=== PATIENT | male | born 1935 | race Caucasian/White ===

== ENCOUNTER 2016-09-05 15:39 | Inpatient (IN) | payer MEDICARE, BC ==
--- NOTE | ~2016-09-05 | PUL ---
[address] [address] NAME: CHRISTIAN HOFFMAN : 37 STATUS : DIS IN PAT#: [id number] AGE: 80 ADM/REG DATE : 09/06/16 MR#: [id number] REPORT SERV DATE: 09/25/16 DICTATED BY: LUCA OLIVIA DATE: 09/24/16 REPORT STATUS : Draft TRANSCRIBED BY: MODL DATE: 09/24/16 PULMONARY FUNCTION TEST PROCEDURE PERFORMED: Overnight oximetry on supplemental oxygen. RECORDED TIME: Five hours and 50 minutes. The patient had no significant desaturations on supplemental oxygen. IMPRESSION: No significant oxygen desaturation on 2 L/minute, a liter flow of supplemental oxygen. DIANE/YUKI Luca Olivia M.D. / [id number] CC: John Mariscal Jr., M.D.
--- NOTE | ~2016-09-05 | PUL ---
[address] [address] NAME: CHRISTIAN HOFFMAN : 37 STATUS : ADM IN PAT#: [id number] AGE: 80 ADM/REG DATE : 09/06/16 MR#: [id number] REPORT SERV DATE: 09/17/16 DICTATED BY: NYASIA LOBATO DATE: 09/16/16 REPORT STATUS : Draft TRANSCRIBED BY: MODL DATE: 09/16/16 PULMONARY FUNCTION TEST Overnight oximetry was performed on 4 L nasal cannula. Total valid sampling time was 6 hours 17 minutes and 5 seconds. Saturations were less than 88% for 0 seconds. INTERPRETATION: Normal oximetry report while on 4 L nasal cannula. DANIELE/MODL Nyasia Lobato M.D. / [id number] CC: John Mariscal Jr., M.D.
--- NOTE | ~2016-09-05 | DS ---
Discharge Summary [place] [id number] [place]. [address] NAME: CHRISTIAN HOFFMAN : 37 STATUS : DIS IN PAT#: [id number] AGE: 80 ADM/REG DATE : 09/06/16 MR#: [id number] REPORT SERV DATE: 10/03/16 DICTATED BY: URSULA MARISCAL JR. DATE: 10/02/16 REPORT STATUS : Draft TRANSCRIBED BY: YUKI DATE: 10/02/16 Data Collection from hospitalization DISCHARGE DIAGNOSES: ( ) ( ) ( ) CONSULTATIONS: Dr. Erasmo Olivares, Dr. Campbell Hudson, Dr. Hank Benítez. PROCEDURES PERFORMED: Diagnostic therapeutic bronchoscopy; endobronchial ultrasound with multiple fine-needle aspiration; carley stations 4R, 4L, 7; endobronchial biopsy, left main stem bronchus, 09/05/2016. 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 Metaplastic endobronchial mucosa with mild atypia. Lymph node level 7 EBUS-guided aspirate (smears and cell block). Adequate lymphoid sampling. Few atypical cells (see comments). Lymph node 4R EBUS-guided aspirate (smears and cell block)-inadequate lymphoid sampling. Abundant blood. No malignant cells identified. Lymph node 4L EBUS-guided aspirate (smears and cell block)-adequate lymphoid sampling. Necrosis associated with atypical cells (see comment). MEDICATIONS: Eliquis 2.5 mg twice a day, vitamin C 100 mg daily, Cardizem 240 mg daily as instructed, Lopressor 25 mg twice a day, MiraLAX powder one packet twice a day, Lyrica 200 mg three times a day, Requip 1 mg at bedtime, OxyContin 20 mg every 12 hours, Deltasone 40 mg with breakfast, Brovana 15 mcg via inhaler twice a day as instructed, Pulmicort Respules 0.5 mg via inhaler twice a day, DuoNeb 3 mL via inhaler every four hours, Skelaxin 800 mg four times a day as needed, Endocet 5/325 one tablet twice a day, Sonata 10 mg at bedtime, glucosamine as instructed, Valium 10 mg every eight hours as needed for anxiety. CONDITION AT DISCHARGE: Stable. DISPOSITION: The patient was discharged to [facility] on a regular diet with activities as instructed. HOSPITAL COURSE: This is a 80-year-old man, who had recently developed hoarseness and cough as well as shortness of breath. He does had a history of tobacco abuse. Chest x-ray and CT scan showed a large anterior mediastinal mass concerning for a malignant process. He also recently had atrial fibrillation and had been started on digoxin and Eliquis. Treatment options were discussed and it was elected to proceed with surgical intervention. He was admitted to the hospital at this time for further evaluation and treatment. Upon admission, he was taken to the operating room, where he underwent the above-mentioned procedure. He tolerated this well and there were no complications. On postop day one, chest x-ray showed basilar atelectasis. Diuresis was being performed. Cardizem drip continued. He had some postoperative hypoxemia. On the , O2 was being weaned as tolerated. He was seen by Dr. Erasmo Olivares regarding acute bronchospasm and hypoxia. The patient was currently hypoxic and bronchospastic respiratory failure. He was unable to give a complete history. He had had an increased cough, wheezing, sputum production, and Discharge Summary [address] [address] NAME: CHRISTIAN HOFFMAN : 37 STATUS : DIS IN PAT#: [id number] AGE: 80 ADM/REG DATE : 09/06/16 MR#: [id number] REPORT SERV DATE: 10/03/16 DICTATED BY: URSULA MARISCAL JR. DATE: 10/02/16 REPORT STATUS : Draft TRANSCRIBED BY: YUKI DATE: 10/02/16 shortness of breath with hypoxia over the last 24-48 hours. Arterial blood gas checked during this clinical encounter showed what seemed to be chronic hypercapnia. The patient has a long history of smoking. He was currently only receiving albuterol and Spiriva. He had no chest pain. The patient said he recently quit smoking. Chest x-ray was consistent with hyperinflated lungs and what looked to be bibasilar atelectasis. CT scan showed significant mediastinal adenopathy. The acute hypoxic respiratory failure was felt most likely secondary to what seemed to be an exacerbation of chronic obstructive pulmonary disease and bibasilar atelectasis. He recommended increasing nebulizer to Brovana, Pulmicort, and DuoNeb. IV steroids were going to began. He also recommended starting BiPAP therapy. Mucomyst was continued. We were going to start antimicrobial therapy. The patient was going to be transferred to the [facility]. If he had worsening respiratory status, we may need to move him to the intensive care unit. However, it was of hope that with the above-named therapy, the patient would have an improvement. The patient was also seen by Dr. Campbell Hudson. White blood cell count was 13,200. Final pathology results were pending. Findings were concerning for small cell versus lymphoma. He had had a clinical deterioration with worsening of his breathing. He felt that we may want to initiate therapy while he was in the hospital. On 09/08/2016, he had decreased breath sounds bilaterally. He was very short of breath. He had had a 35 pounds weight loss. Pathology verbal report was consistent with DLBCL. It was felt that the patient would need to start therapy as soon as possible. R-CV and Solu-Medrol therapy were going to begin that day. A PICC line was inserted. The next day, the patient had difficulty communicating. Chemotherapy was going to began. Oral Cardizem was continued for atrial fibrillation. Drip was being weaned. 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 He was on BiPAP. On 09/09/2016, he complained of dysphagia. He was in no acute distress. He did have some anxiety. He was on Vapotherm. The patient was seen by Dr. Hank Benítez. The patient felt short of breath and was on Vapotherm. He remained afebrile. He had no issues with chemotherapy overnight. He had no nausea or vomiting. On 09/10/2016, he seemed to be doing better. He was off BiPAP. He was in no distress. He was still anxious. He was placed back on BiPAP after two hours. He was using accessory muscles. He had no edema. He complained of some diffuse pain. He seemed more comfortable on BiPAP. We encouraged him to get out of bed. Supportive care continued. On 09/11/2016, he had some increased work of breathing. Chemotherapy and steroids were continued. Nebulizer therapy continued as well. He was in a normal sinus rhythm. His anxiety had improved. He did have some rhonchi and wheezing. On 09/13/2016, he was still significantly short of breath, requiring BiPAP. He had decreased breath sounds bilaterally. His chemotherapy had been started urgently due to respiratory compromise. His breathing had not improved significantly. Urine output was adequate. The next day, he was on nasal cannula. He was less short of breath. He had a dry cough. He had no fevers or chills. He was having slow clinical improvement. Liver enzymes were elevated. He was evaluated by Physical Therapy. On 09/15/2016, he felt like his breathing was little better. He still had some dyspnea. We encouraged him to increase his activity. He had scattered rhonchi in his lungs. The next day, he said he was breathing well, but did not sleep at all the previous evening. Later in the day, he complained that he felt like he could not breathe. We were going to place him back on Discharge Summary [address] [address] NAME: CHRISTIAN HOFFMAN : 37 STATUS : DIS IN PAT#: [id number] AGE: 80 ADM/REG DATE : 09/06/16 MR#: [id number] REPORT SERV DATE: 10/03/16 DICTATED BY: URSULA MARISCAL JR. DATE: 10/02/16 REPORT STATUS : Draft TRANSCRIBED BY: YUKI DATE: 10/02/16 BiPAP, so we would feel more comfortable. On the , his breathing was slowly improving. He said he had a good night of sleep. He had no new issues. His next chemotherapy cycle would be in two weeks. Discharge planning was performed. No new issues from a surgical standpoint. On 09/21/2016, discharge instructions were given. Due to his improved and stable condition, he was discharged to [facility] with the above-stated instructions. Information collected by: Dawna Guerrier I submit the above information as my discharge summary. FILIBERTO/YUKI Ursula Mariscal Jr., M.D. / [id number] CC: Rachna Barillas Jr. D.O. [facility] Becca RIVERA M.D.
--- NOTE | ~2016-09-05 | CN ---
Consultation Report [facility] [address] [place]. [address] NAME: CHRISTIAN PETERSON : 37 STATUS : ADM IN [facility]#: [id number] AGE: 80 ADM/REG DATE : 09/06/16 MR#: [id number] REPORT SERV DATE: 09/07/16 DICTATED BY: ERASMO OLIVARES DATE: 09/07/16 REPORT STATUS : Draft TRANSCRIBED BY: MODL DATE: 09/07/16 PULMONARY CONSULT NOTE DATE OF CONSULTATION: 09/07/2016 REASON FOR CONSULTATION: Acute bronchospasm and hypoxia. HISTORY OF PRESENT ILLNESS: Mr. Peterson is a 80-year-old male who presented several days ago for an EBUS procedure and was admitted, he has either small cell or underlying lymphoma, pathology is still pending. The patient is currently in a hypoxic and bronchospastic respiratory failure, is unable to give a complete history. Furthermore, he has had worsened for the last two months. However, he clearly has an increased cough, wheezing, sputum production, and shortness of breath with hypoxia in the last 24 to 48 hours. Arterial blood gas was checked during this clinical encounter, which shows what seems to be chronic hypercapnia. The patient states he has a long history of smoking. Currently, he is only getting albuterol and Spiriva. The patient has no chest pain. REVIEW OF SYSTEMS: All pertinent review of systems reviewed and is otherwise negative. PROBLEM LIST: Past medical history is consistent with mediastinal mass, paroxysmal atrial fibrillation, panlobular emphysema, peripheral vascular disease, and tobacco use. ALLERGIES: MORPHINE, SULFA. HOME MEDICATION: Home medication list reviewed, pulmonary medications include Spiriva. FAMILY HISTORY: The patient states that his family history is otherwise well; however, on review of records, his father and mother had congestive heart failure and his brother had cancer. SOCIAL HISTORY: The patient states that he has been smoking for decades, around one pack per day. The patient states that he has recently quit. REVIEW OF SYSTEMS: Unable to obtain complete review of systems due to the patient's current shortness of breath. PHYSICAL EXAMINATION: VITAL SIGNS: Afebrile, heart rate in the 80s, respiratory rate 20 to 24, and oxygen saturation currently 95% on L. Blood pressure currently is 136. GENERAL: The patient is in meuuyaso-ha-ugecas respiratory distress, has conversational dyspnea. HEENT: No JVD. Consultation Report [address] [place]. [address] NAME: CHRISTIAN PETERSON : 37 STATUS : ADM IN PAT#: [id number] AGE: 80 ADM/REG DATE : 09/06/16 MR#: [id number] REPORT SERV DATE: 09/07/16 DICTATED BY: ERASMO OLIVARES DATE: 09/07/16 REPORT STATUS : Draft TRANSCRIBED BY: MODL DATE: 09/07/16 PULMONARY: The patient actually has good air movement, [id number] wheezing, mild accessory muscle use. CARDIAC: Regular rate, no murmurs. ABDOMEN: Soft, nontender, nondistended. NEUROLOGIC: The patient is able to move his extremities with no difficulty. LABORATORY EXAMINATION: Hemoglobin is 19.4 on admission, mild leukocytosis, good kidney function. IMAGING DATA: Chest x-ray is consistent with hyperinflated lungs and what looks to be bibasilar atelectasis. CT scan shows significant mediastinal adenopathy. ASSESSMENT AND PLAN: 1. Acute hypoxic respiratory failure: Most likely secondary to what seemed to be an exacerbation of chronic obstructive pulmonary disease and bibasilar atelectasis, at this moment in time, we would recommend increasing nebulized to Brovana, Pulmicort, DuoNebs. Started IV steroids. Also recommend starting BiPAP therapy. 2. Acute exacerbation of chronic obstructive pulmonary disease: As noted above, continue Mucomyst, sit up in bed. We will also start underlying antimicrobial therapy. 3. Mediastinal adenopathy: The patient is status post biopsy and awaiting results at this moment in time. 4. Disposition: The patient is to be transferred to the [facility], currently he most likely will have significant improvement in his symptoms with BiPAP therapy. If the patient has worsening respiratory status, may need to move the patient to the intensive care unit; however, it is our hopes that with the above-named therapies, the patient will have an improvement. Thank you very much for this consultation, we will continue to follow along with you. HFQ/MODL Erasmo Olivares MD / [id number] CC: John Mariscal Jr., M.D.
--- NOTE | ~2016-09-05 | OP ---
Record Of Operation [facility] [address] [place]. [address] NAME: CHRISTIAN HOFFMAN : 39 STATUS : ADM Jacqueline PAT#: [id number] AGE: 80 ADM/REG DATE : 09/05/16 MR#: [id number] REPORT SERV DATE: 09/06/16 DICTATED BY: URSULA MARISCAL JR. DATE: 09/05/16 REPORT STATUS : Draft TRANSCRIBED BY: MODL DATE: 09/05/16 DATE OF PROCEDURE: 09/05/2016 PREOPERATIVE DIAGNOSIS: Mediastinal mass, rule out lymphoma versus small cell lung cancer, chronic obstructive pulmonary disease, atrial fibrillation, chronic pain syndrome. POSTOPERATIVE DIAGNOSIS: Pathology pending. NAME OF OPERATION: Diagnostic therapeutic bronchoscopy, endobronchial ultrasound with multiple fine-needle aspirations carley stations 4R, 4 L, 7, endobronchial biopsy left main stem bronchus. SURGEON: Ursula Mariscal M.D. GENERAL SURGEON: Neeraj Craft MD ANESTHESIA: General tracheal. FINDINGS: The patient is noted to have significant narrowing in the left mainstem bronchus with edematous mucosal tissue. The right main stem had normal anatomy. There were no other endobronchial lesions. There was an extensive paratracheal and hilar mass as seen on CT scan. This is clearly abnormal. Extensive multiple fine-needle aspirations in the right and left paratracheal area as well as subcarinal area revealed a lot of necrotic tissue and blood. We were able to get a definitive cell diagnosis on touch prep. We went through three different biopsy needles and made exhaustive attempts in all different regions. A biopsy of the left main stem bronchus given this abnormality was also performed. Final pathology is pending. DETAILS OF OPERATION: After adequate general anesthesia, the patient was intubated with an LMA. Diagnostic and therapeutic bronchoscopy was performed noting an abnormality in the left main stem bronchus. Rest of his anatomy was normal. We initially did not biopsy the left main stem thinking this will be an easy get tissue in the large mediastinal mass. Endobronchial ultrasound was then performed noting the pathologically abnormal tissue surrounding all of the hilar central structures. We did fine-needle aspirations in the right and left paratracheal as well as subcarinal area, demonstrated the above findings. Exhaustive measures were taken to get abundant amount of tissue. Additional material sent for cell block. The endobronchial ultrasound was then removed with the bronchoscope was placed back in the patient's left main stem bronchus where multiple endobronchial biopsies were performed. Adequate hemostasis was obtained. The procedure was terminated at this point. The patient tolerated the procedure well and taken back to recovery room in stable condition. DOE/YUKI Record Of [address] [address] NAME: CHRISTIAN HOFFMAN : 37 STATUS : ADM Jacqueline PAT#: [id number] AGE: 80 ADM/REG DATE : 09/05/16 MR#: [id number] REPORT SERV DATE: 09/06/16 DICTATED BY: URSULA MARISCAL JR. DATE: 09/05/16 REPORT STATUS : Draft TRANSCRIBED BY: YUKI DATE: 09/05/16 Ursula Mariscal Jr., M.D. / [id number] CC: Ursula Mariscal Jr., M.D.
--- NOTE | ~2016-09-05 | CN ---
Consultation Report [place] [address] [facility]. [address] NAME: CHRISTIAN PETERSON : 37 STATUS : ADM IN PAT#: [id number] AGE: 80 ADM/REG DATE : 09/06/16 MR#: [id number] REPORT SERV DATE: 09/07/16 DICTATED BY: MIGUEL BURNETTE MARK SANDERS DATE: 09/07/16 REPORT STATUS : Draft TRANSCRIBED BY: MODL DATE: 09/07/16 CONSULTATION DATE OF CONSULTATION: 09/07/2016 REASON FOR CONSULTATION: Mediastinal mass. CLINICIAN REQUESTING CONSULTATION: Dr. John Mariscal. HISTORY OF PRESENT ILLNESS: Mr. Peterson is a 80-year-old white male, who saw my partner Dr. 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 He is now admitted with a large mediastinal mass. He had an EBUS procedure with pathology still pending, but concerning for small cell carcinoma versus lymphoma. Today, he became hypoxic with bronchospasms and was transferred to the [facility]. He currently has a face mask on and is unable to give a clear history. Per the notes however, he has had increased cough, sputum production, and short of breath that has worsened over the last 24 to 48 hours. Review of his outside CT scan does reveal a large mediastinal mass. REVIEW OF SYSTEMS: Unable to obtain. PAST MEDICAL HISTORY: 1. Paroxysmal atrial fibrillation. 2. Emphysema. 3. Peripheral vascular disease. ALLERGIES: MORPHINE AND SULFA. HOME MEDICATIONS: Reviewed on the chart. FAMILY HISTORY: Significant for brother with an unspecified cancer. SOCIAL HISTORY: Significant for smoking. PHYSICAL EXAMINATION: VITAL SIGNS: Blood pressure 138/72, pulse 140, temperature 97.4. GENERAL APPEARANCE: Elderly, in poor health. LUNGS: Coarse bilateral breath sounds. CARDIOVASCULAR: Irregular, tachycardic. ABDOMEN: Soft, nontender, nondistended. LABORATORY DATA: White count 13,200, hemoglobin 17.8 g, platelets of 163,000. Creatinine 1.11. Consultation Report [place] [address] [facility] [place]. [address] NAME: CHRISTIAN PETERSON : 37 STATUS : ADM IN PAT#: [id number] AGE: 80 ADM/REG DATE : 09/06/16 MR#: [id number] REPORT SERV DATE: 09/07/16 DICTATED BY: MIGUEL BURNETTE MARK SANDERS DATE: 09/07/16 REPORT STATUS : Draft TRANSCRIBED BY: YUKI DATE: 09/07/16 ASSESSMENT AND PLAN: Mr. Peterson is a 80-year-old white male with a large mediastinal mass, who is status post EBUS with final pathology pending. Findings are concerning for small cell versus lymphoma. He has had a clinical deterioration with worsening of his breathing. I will speak with Pathology in the morning to help clarify his final path. Although his performance status is poor at this time, we may want to consider initiating therapy while here in the hospital as his breathing is worsening. Thank you for the consultation. We will continue to follow with you. MARIANO/YUKI Campbell Burnette IV, M.D. / [id number] CC: Rachna Barillas Jr.
[~2016-09-05 15:39] MED LIST: CELEBREX2 PO; DILT-XR240 MG PO; ELIQUIS 2.5 MG2.5 MG PO; ENDOCET1 TAB PO; FLECTOR1.3 % TOP; GLUCOSAMINEPO PO; LYRICA150 MG PO; LYRICA200 MG PO; NORCO1 TAB PO; OS500 PO; OXYCON20 PO; PROMEGA PO; REQUIP1 PO; ROXICODONE15 MG PO; ROXICODONE30 MG PO; ROZEREM8 MG PO; SKELAXIN8 PO; SONATA PO; SPIRIVA RESPIMAT INH; THERGRANM PO; VITAMIN C100 MG PO; VITAMIN D31000 UNIT PO; [UNRECOGNIZED DRUG - OTHER]
[2016-09-05 16:19] LABS: BUN (BLOOD UREA NITROGEN) 25 MG/DL (6-23); CALCIUM, SERUM 8.9 MG/DL (8.5-10.4); CHLORIDE, SERUM 103 MMOL/L (96-112); CO2 (CARBON DIOXIDE) 26 MMOL/L (24-34); CREATININE 0.91 MG/DL (0.70-1.30); GFR AFRICAN AMERICAN 93 ML/MIN (>=60); GFR NON AFRICAN AMERICAN 80 ML/MIN (>=60); GLUCOSE, SERUM 115 MG/DL (60-99); POTASSIUM, SERUM 4.2 MMOL/L (3.5-5.3); SODIUM, SERUM 138 MMOL/L (135-148)
[2016-09-05 16:48] LABS: HEMATOCRIT 55.2 % (40.0-51.0); HEMOGLOBIN 19.4 g/dL (13.6-17.8)
[2016-09-07 04:18] LABS: BASOPHILS 0.2 %; BASOPHILS ABSOLUTE 0.02 10/3/uL (0.0-0.16); EOSINOPHILS 0.2 %; EOSINOPHILS ABSOLUTE 0.03 10/3/uL (0.0-0.53); HEMATOCRIT 52.7 % (40.0-51.0); HEMOGLOBIN 17.8 g/dL (13.6-17.8); IMMATURE GRANULOCYTES 0.3 %; IMMATURE GRANULOCYTES ABSOLUTE 0.04 10/3/uL (0.0-0.11); LYMPHOCYTES 6.7 %; LYMPHOCYTES ABSOLUTE 0.89 10/3/uL (0.67-4.30); MEAN CORPUS HGB CONC 33.8 g/dL (32.0-36.0); MEAN CORPUSCULAR HEMOGLOB 31.1 pg (26.0-34.0); MONOCYTES 4.8 %; MONOCYTES ABSOLUTE 0.64 10/3/uL (0.21-1.20); NEUTROPHILS 87.8 %; NEUTROPHILS ABSOLUTE 11.61 10/3/uL (2.02-8.40); PLATELET COUNT 163 10/3/uL (150-400); RBC DISTRIBUTION WIDTH 14.5 % (12.0-16.0); RED CELL COUNT 5.72 10/6/uL (4.7-6.1)
[2016-09-07 04:21] LABS: MANUAL DIFF NO %; MEAN CORPUSCULAR VOLUME 92.1 fL (80-100); WHITE BLOOD CELLS 13.2 10/3/uL (4.5-10.5)
[2016-09-07 04:30] LABS: BUN (BLOOD UREA NITROGEN) 26 MG/DL (6-23); CALCIUM, SERUM 9.4 MG/DL (8.5-10.4); CHLORIDE, SERUM 100 MMOL/L (96-112); CREATININE 1.11 MG/DL (0.70-1.30); GFR AFRICAN AMERICAN 73 ML/MIN (>=60); GFR NON AFRICAN AMERICAN 63 ML/MIN (>=60); GLUCOSE, SERUM 96 MG/DL (60-99); POTASSIUM, SERUM 4.1 MMOL/L (3.5-5.3); SODIUM, SERUM 142 MMOL/L (135-148)
[2016-09-07 04:34] LABS: CO2 (CARBON DIOXIDE) 34 MMOL/L (24-34)
[2016-09-07 09:04] LABS: BE (BASE EXCESS) 6.4 MEQ/L (0 +/- 2.5); INSTRUMENT SERIAL # 35151; PCO2 (CO2 TENSION) 62 MMHG (35-45); PO2 (O2 TENSION) 81 MMHG (79-93); pH 7.37 (7.37-7.43)
[2016-09-07 09:05] LABS: ALLENS TEST Pos; CARBOXYHEMOGLOBIN 0.3 % (0-3); HCO3 (ACTUAL BICARBONATE) 34.6 MEQ/L (23-27); HEMOBLOGIN CONTENT 18.8 G/DL (14-18); METHEMOGLOBIN 0.7 % (0-3); OPERATOR ID 32214; SAMPLE Arterial
[2016-09-07 11:55] LABS: BE (BASE EXCESS) 5.8 MEQ/L (0 +/- 2.5); CARBOXYHEMOGLOBIN 0.3 % (0-3); HCO3 (ACTUAL BICARBONATE) 32.7 MEQ/L (23-27); HEMOBLOGIN CONTENT 18.2 G/DL (14-18); INSTRUMENT SERIAL # 35151; METHEMOGLOBIN 0.9 % (0-3); O2 CONTENT 25.4 VOL% (18-24); PCO2 (CO2 TENSION) 55 MMHG (35-45); PO2 (O2 TENSION) 193 MMHG (79-93); SAMPLE Arterial
[2016-09-08 16:59] LABS: ALBUMIN 2.7 G/DL (3.5-5.0); DIRECT BILIRUBIN 0.2 MG/DL (0.0-0.4); INDIRECT BILIRUBIN(NOT ORDER) 0.3 MG/DL (0.1-0.9); TOTAL BILIRUBIN 0.5 MG/DL (0-1.2); TOTAL PROTEIN 6.8 G/DL (6.0-8.5)
[2016-09-09 06:24] LABS: BASOPHILS 0 %; EOSINOPHILS 0 %; HEMATOCRIT 52.7 % (40.0-51.0); HEMOGLOBIN 17.2 g/dL (13.6-17.8); IMMATURE GRANULOCYTES 0.4 %; IMMATURE GRANULOCYTES ABSOLUTE 0.06 10/3/uL (0.0-0.11); LYMPHOCYTES 2.1 %; LYMPHOCYTES ABSOLUTE 0.28 10/3/uL (0.67-4.30); MEAN CORPUS HGB CONC 32.6 g/dL (32.0-36.0); MEAN CORPUSCULAR HEMOGLOB 30.5 pg (26.0-34.0); MEAN CORPUSCULAR VOLUME 93.4 fL (80-100); MEAN PLATELET VOLUME 10.8 fL (9.2-13.0); MONOCYTES 1.6 %; MONOCYTES ABSOLUTE 0.21 10/3/uL (0.21-1.20); NEUTROPHILS 95.9 %; NEUTROPHILS ABSOLUTE 12.79 10/3/uL (2.02-8.40); PLATELET COUNT 200 10/3/uL (150-400); RBC DISTRIBUTION WIDTH 13.8 % (12.0-16.0); RED CELL COUNT 5.64 10/6/uL (4.7-6.1); WHITE BLOOD CELLS 13.3 10/3/uL (4.5-10.5)
[2016-09-09 06:25] LABS: MANUAL DIFF NO %
[2016-09-09 06:35] LABS: A/G RATIO 0.7 (0.7-1.9); ALBUMIN 2.7 G/DL (3.5-5.0); ALKALINE PHOSPHATASE 94 U/L (45-117); BUN (BLOOD UREA NITROGEN) 35 MG/DL (6-23); CALCIUM, SERUM 8.9 MG/DL (8.5-10.4); CHLORIDE, SERUM 102 MMOL/L (96-112); CO2 (CARBON DIOXIDE) 36 MMOL/L (24-34); CREATININE 0.96 MG/DL (0.70-1.30); GFR AFRICAN AMERICAN 87 ML/MIN (>=60); GFR NON AFRICAN AMERICAN 75 ML/MIN (>=60); GLUCOSE, SERUM 133 MG/DL (60-99); PHOSPHORUS, SERUM 2.7 MG/DL (2.5-4.5); POTASSIUM, SERUM 4.6 MMOL/L (3.5-5.3); SGOT(AST) 113 U/L (5-40); SGPT(ALT) 119 U/L (5-65); SODIUM, SERUM 141 MMOL/L (135-148); TOTAL BILIRUBIN 0.5 MG/DL (0-1.2); TOTAL PROTEIN 6.7 G/DL (6.0-8.5)
[2016-09-09 14:02] LABS: ALLENS TEST Pos; BE (BASE EXCESS) 7.4 MEQ/L (0 +/- 2.5); CARBOXYHEMOGLOBIN 0.8 % (0-3); DEVICE HFNC; HCO3 (ACTUAL BICARBONATE) 34.7 MEQ/L (23-27); HEMOBLOGIN CONTENT 17.7 G/DL (14-18); INSTRUMENT SERIAL # 8083; METHEMOGLOBIN 0.4 % (0-3); O2 CONTENT 22.2 VOL% (18-24); OPERATOR ID 13624; PCO2 (CO2 TENSION) 57 MMHG (35-45); PO2 (O2 TENSION) 58 MMHG (79-93); SAMPLE Arterial
[2016-09-10 06:00] LABS: BASOPHILS 0 %; EOSINOPHILS 0 %; HEMATOCRIT 49.3 % (40.0-51.0); HEMOGLOBIN 16.2 g/dL (13.6-17.8); IMMATURE GRANULOCYTES 0.4 %; IMMATURE GRANULOCYTES ABSOLUTE 0.04 10/3/uL (0.0-0.11); LYMPHOCYTES 4.3 %; LYMPHOCYTES ABSOLUTE 0.42 10/3/uL (0.67-4.30); MEAN CORPUS HGB CONC 32.9 g/dL (32.0-36.0); MEAN CORPUSCULAR HEMOGLOB 30.6 pg (26.0-34.0); MEAN PLATELET VOLUME 10.2 fL (9.2-13.0); NEUTROPHILS 92.3 %; NEUTROPHILS ABSOLUTE 9.11 10/3/uL (2.02-8.40); PLATELET COUNT 163 10/3/uL (150-400); RBC DISTRIBUTION WIDTH 13.7 % (12.0-16.0); WHITE BLOOD CELLS 9.9 10/3/uL (4.5-10.5)
[2016-09-10 06:02] LABS: MANUAL DIFF NO %
[2016-09-10 06:11] LABS: A/G RATIO 0.7 (0.7-1.9); ALBUMIN 2.5 G/DL (3.5-5.0); ALKALINE PHOSPHATASE 85 U/L (45-117); BUN (BLOOD UREA NITROGEN) 28 MG/DL (6-23); CALCIUM, SERUM 8.7 MG/DL (8.5-10.4); CHLORIDE, SERUM 106 MMOL/L (96-112); CO2 (CARBON DIOXIDE) 34 MMOL/L (24-34); CREATININE 0.77 MG/DL (0.70-1.30); GFR AFRICAN AMERICAN 101 ML/MIN (>=60); GFR NON AFRICAN AMERICAN 87 ML/MIN (>=60); GLOBULIN 3.4 G/DL (2.5-4.1); GLUCOSE, SERUM 106 MG/DL (60-99); POTASSIUM, SERUM 4.6 MMOL/L (3.5-5.3); SGOT(AST) 99 U/L (5-40); SGPT(ALT) 164 U/L (5-65); SODIUM, SERUM 143 MMOL/L (135-148); TOTAL BILIRUBIN 0.6 MG/DL (0-1.2); TOTAL PROTEIN 5.9 G/DL (6.0-8.5)
[2016-09-11 04:17] LABS: BASOPHILS 0 %; EOSINOPHILS 0 %; HEMATOCRIT 51.1 % (40.0-51.0); HEMOGLOBIN 17.6 g/dL (13.6-17.8); IMMATURE GRANULOCYTES 0.3 %; IMMATURE GRANULOCYTES ABSOLUTE 0.03 10/3/uL (0.0-0.11); LYMPHOCYTES 4.5 %; LYMPHOCYTES ABSOLUTE 0.45 10/3/uL (0.67-4.30); MANUAL DIFF NO %; MEAN CORPUS HGB CONC 34.4 g/dL (32.0-36.0); MEAN CORPUSCULAR HEMOGLOB 30.8 pg (26.0-34.0); MEAN CORPUSCULAR VOLUME 89.3 fL (80-100); MEAN PLATELET VOLUME 10.1 fL (9.2-13.0); MONOCYTES 3.4 %; MONOCYTES ABSOLUTE 0.34 10/3/uL (0.21-1.20); NEUTROPHILS 91.8 %; NEUTROPHILS ABSOLUTE 9.17 10/3/uL (2.02-8.40); PLATELET COUNT 147 10/3/uL (150-400); RBC DISTRIBUTION WIDTH 13.7 % (12.0-16.0); RED CELL COUNT 5.72 10/6/uL (4.7-6.1)
[2016-09-11 04:31] LABS: A/G RATIO 0.8 (0.7-1.9); ALBUMIN 2.8 G/DL (3.5-5.0); ALKALINE PHOSPHATASE 90 U/L (45-117); CALCIUM, SERUM 9.2 MG/DL (8.5-10.4); CHLORIDE, SERUM 105 MMOL/L (96-112); CO2 (CARBON DIOXIDE) 32 MMOL/L (24-34); CREATININE 0.67 MG/DL (0.70-1.30); GFR AFRICAN AMERICAN 107 ML/MIN (>=60); GFR NON AFRICAN AMERICAN 92 ML/MIN (>=60); GLOBULIN 3.5 G/DL (2.5-4.1); GLUCOSE, SERUM 96 MG/DL (60-99); POTASSIUM, SERUM 4.6 MMOL/L (3.5-5.3); SGOT(AST) 104 U/L (5-40); SGPT(ALT) 238 U/L (5-65); SODIUM, SERUM 143 MMOL/L (135-148); TOTAL PROTEIN 6.3 G/DL (6.0-8.5)
[2016-09-11 04:33] LABS: BUN (BLOOD UREA NITROGEN) 24 MG/DL (6-23); TOTAL BILIRUBIN 1.1 MG/DL (0-1.2)
[2016-09-12 04:44] LABS: BASOPHILS 0 %; EOSINOPHILS 0 %; HEMATOCRIT 52.5 % (40.0-51.0); IMMATURE GRANULOCYTES 0.4 %; IMMATURE GRANULOCYTES ABSOLUTE 0.03 10/3/uL (0.0-0.11); LYMPHOCYTES 3.4 %; LYMPHOCYTES ABSOLUTE 0.29 10/3/uL (0.67-4.30); MEAN CORPUS HGB CONC 34.3 g/dL (32.0-36.0); MEAN CORPUSCULAR HEMOGLOB 30.8 pg (26.0-34.0); MEAN CORPUSCULAR VOLUME 89.9 fL (80-100); MEAN PLATELET VOLUME 10.5 fL (9.2-13.0); MONOCYTES 5.1 %; MONOCYTES ABSOLUTE 0.43 10/3/uL (0.21-1.20); NEUTROPHILS 91.1 %; NEUTROPHILS ABSOLUTE 7.72 10/3/uL (2.02-8.40); PLATELET COUNT 137 10/3/uL (150-400); RBC DISTRIBUTION WIDTH 13.4 % (12.0-16.0); RED CELL COUNT 5.84 10/6/uL (4.7-6.1); WHITE BLOOD CELLS 8.5 10/3/uL (4.5-10.5)
[2016-09-12 04:46] LABS: MANUAL DIFF NO %
[2016-09-12 05:05] LABS: A/G RATIO 0.8 (0.7-1.9); ALBUMIN 2.6 G/DL (3.5-5.0); ALKALINE PHOSPHATASE 79 U/L (45-117); BUN (BLOOD UREA NITROGEN) 27 MG/DL (6-23); CHLORIDE, SERUM 103 MMOL/L (96-112); CO2 (CARBON DIOXIDE) 32 MMOL/L (24-34); CREATININE 0.62 MG/DL (0.70-1.30); GFR AFRICAN AMERICAN 110 ML/MIN (>=60); GFR NON AFRICAN AMERICAN 95 ML/MIN (>=60); GLOBULIN 3.2 G/DL (2.5-4.1); GLUCOSE, SERUM 104 MG/DL (60-99); POTASSIUM, SERUM 4.4 MMOL/L (3.5-5.3); SGOT(AST) 64 U/L (5-40); SGPT(ALT) 188 U/L (5-65); SODIUM, SERUM 138 MMOL/L (135-148); TOTAL BILIRUBIN 1.1 MG/DL (0-1.2); TOTAL PROTEIN 5.8 G/DL (6.0-8.5)
[2016-09-13 06:30] LABS: BASOPHILS 0 %; EOSINOPHILS 0.4 %; EOSINOPHILS ABSOLUTE 0.03 10/3/uL (0.0-0.53); HEMATOCRIT 53.2 % (40.0-51.0); HEMOGLOBIN 18.1 g/dL (13.6-17.8); IMMATURE GRANULOCYTES 0.4 %; IMMATURE GRANULOCYTES ABSOLUTE 0.03 10/3/uL (0.0-0.11); LYMPHOCYTES 4.7 %; LYMPHOCYTES ABSOLUTE 0.37 10/3/uL (0.67-4.30); MEAN CORPUSCULAR HEMOGLOB 30.8 pg (26.0-34.0); MEAN CORPUSCULAR VOLUME 90.5 fL (80-100); MEAN PLATELET VOLUME 11.3 fL (9.2-13.0); MONOCYTES 2.3 %; MONOCYTES ABSOLUTE 0.18 10/3/uL (0.21-1.20); NEUTROPHILS 92.2 %; NEUTROPHILS ABSOLUTE 7.28 10/3/uL (2.02-8.40); PLATELET COUNT 129 10/3/uL (150-400); RBC DISTRIBUTION WIDTH 13.5 % (12.0-16.0); RED CELL COUNT 5.88 10/6/uL (4.7-6.1); WHITE BLOOD CELLS 7.9 10/3/uL (4.5-10.5)
[2016-09-13 06:31] LABS: MANUAL DIFF NO %
[2016-09-13 06:44] LABS: A/G RATIO 0.8 (0.7-1.9); ALBUMIN 2.7 G/DL (3.5-5.0); BUN (BLOOD UREA NITROGEN) 30 MG/DL (6-23); CALCIUM, SERUM 9.1 MG/DL (8.5-10.4); CHLORIDE, SERUM 102 MMOL/L (96-112); CO2 (CARBON DIOXIDE) 31 MMOL/L (24-34); CREATININE 0.81 MG/DL (0.70-1.30); GFR AFRICAN AMERICAN 99 ML/MIN (>=60); GFR NON AFRICAN AMERICAN 85 ML/MIN (>=60); GLOBULIN 3.4 G/DL (2.5-4.1); POTASSIUM, SERUM 4.4 MMOL/L (3.5-5.3); SGPT(ALT) 319 U/L (5-65); SODIUM, SERUM 140 MMOL/L (135-148); TOTAL BILIRUBIN 1.4 MG/DL (0-1.2); TOTAL PROTEIN 6.1 G/DL (6.0-8.5)
[2016-09-13 06:46] LABS: ALKALINE PHOSPHATASE 91 U/L (45-117); GLUCOSE, SERUM 79 MG/DL (60-99); SGOT(AST) 154 U/L (5-40)
[2016-09-14 03:51] LABS: BASOPHILS 0 %; EOSINOPHILS 0.1 %; EOSINOPHILS ABSOLUTE 0.01 10/3/uL (0.0-0.53); HEMATOCRIT 54.1 % (40.0-51.0); HEMOGLOBIN 18.7 g/dL (13.6-17.8); IMMATURE GRANULOCYTES 0.7 %; IMMATURE GRANULOCYTES ABSOLUTE 0.06 10/3/uL (0.0-0.11); LYMPHOCYTES ABSOLUTE 0.34 10/3/uL (0.67-4.30); MEAN CORPUS HGB CONC 34.6 g/dL (32.0-36.0); MEAN CORPUSCULAR HEMOGLOB 30.6 pg (26.0-34.0); MEAN CORPUSCULAR VOLUME 88.4 fL (80-100); MEAN PLATELET VOLUME 11.3 fL (9.2-13.0); MONOCYTES 1.8 %; MONOCYTES ABSOLUTE 0.15 10/3/uL (0.21-1.20); NEUTROPHILS 93.4 %; NEUTROPHILS ABSOLUTE 7.99 10/3/uL (2.02-8.40); PLATELET COUNT 113 10/3/uL (150-400); RBC DISTRIBUTION WIDTH 13.7 % (12.0-16.0); RED CELL COUNT 6.12 10/6/uL (4.7-6.1); WHITE BLOOD CELLS 8.6 10/3/uL (4.5-10.5)
[2016-09-14 03:54] LABS: MANUAL DIFF NO %
[2016-09-14 04:04] LABS: A/G RATIO 0.9 (0.7-1.9); ALBUMIN 2.9 G/DL (3.5-5.0); ALKALINE PHOSPHATASE 95 U/L (45-117); BUN (BLOOD UREA NITROGEN) 33 MG/DL (6-23); CHLORIDE, SERUM 105 MMOL/L (96-112); CO2 (CARBON DIOXIDE) 30 MMOL/L (24-34); CREATININE 0.73 MG/DL (0.70-1.30); GFR AFRICAN AMERICAN 103 ML/MIN (>=60); GFR NON AFRICAN AMERICAN 89 ML/MIN (>=60); GLOBULIN 3.3 G/DL (2.5-4.1); GLUCOSE, SERUM 98 MG/DL (60-99); POTASSIUM, SERUM 4.3 MMOL/L (3.5-5.3); SGOT(AST) 143 U/L (5-40); SGPT(ALT) 420 U/L (5-65); SODIUM, SERUM 142 MMOL/L (135-148); TOTAL BILIRUBIN 1.2 MG/DL (0-1.2); TOTAL PROTEIN 6.2 G/DL (6.0-8.5)
[2016-09-15 04:24] LABS: BASOPHILS 0.1 %; BASOPHILS ABSOLUTE 0.01 10/3/uL (0.0-0.16); EOSINOPHILS 0.1 %; EOSINOPHILS ABSOLUTE 0.01 10/3/uL (0.0-0.53); HEMATOCRIT 50.4 % (40.0-51.0); HEMOGLOBIN 17.5 g/dL (13.6-17.8); IMMATURE GRANULOCYTES 1.3 %; LYMPHOCYTES 4.3 %; LYMPHOCYTES ABSOLUTE 0.33 10/3/uL (0.67-4.30); MEAN CORPUS HGB CONC 34.7 g/dL (32.0-36.0); MEAN CORPUSCULAR VOLUME 89.2 fL (80-100); MEAN PLATELET VOLUME 11.7 fL (9.2-13.0); MONOCYTES 1.5 %; MONOCYTES ABSOLUTE 0.12 10/3/uL (0.21-1.20); NEUTROPHILS 92.7 %; NEUTROPHILS ABSOLUTE 7.18 10/3/uL (2.02-8.40); PLATELET COUNT 101 10/3/uL (150-400); RBC DISTRIBUTION WIDTH 13.7 % (12.0-16.0); RED CELL COUNT 5.65 10/6/uL (4.7-6.1); WHITE BLOOD CELLS 7.8 10/3/uL (4.5-10.5)
[2016-09-15 04:26] LABS: MANUAL DIFF NO %
[2016-09-15 04:55] LABS: A/G RATIO 0.9 (0.7-1.9); ALBUMIN 2.8 G/DL (3.5-5.0); ALKALINE PHOSPHATASE 90 U/L (45-117); BUN (BLOOD UREA NITROGEN) 47 MG/DL (6-23); CALCIUM, SERUM 8.8 MG/DL (8.5-10.4); CHLORIDE, SERUM 104 MMOL/L (96-112); CO2 (CARBON DIOXIDE) 32 MMOL/L (24-34); CREATININE 0.94 MG/DL (0.70-1.30); GFR AFRICAN AMERICAN 90 ML/MIN (>=60); GFR NON AFRICAN AMERICAN 77 ML/MIN (>=60); GLOBULIN 3.2 G/DL (2.5-4.1); GLUCOSE, SERUM 97 MG/DL (60-99); POTASSIUM, SERUM 4.5 MMOL/L (3.5-5.3); SGOT(AST) 94 U/L (5-40); SGPT(ALT) 388 U/L (5-65); SODIUM, SERUM 142 MMOL/L (135-148); TOTAL BILIRUBIN 0.8 MG/DL (0-1.2)
[2016-09-15 14:14] LABS: HEPARIN-INDUCED PLATELET AB NEGATIVE (NEGATIVE); HIT PATIENT O.D. 0.144 OD (0.000-0.299)
[2016-09-16 05:43] LABS: BASOPHILS 0.4 %; BASOPHILS ABSOLUTE 0.02 10/3/uL (0.0-0.16); EOSINOPHILS 0.2 %; EOSINOPHILS ABSOLUTE 0.01 10/3/uL (0.0-0.53); HEMATOCRIT 52.7 % (40.0-51.0); HEMOGLOBIN 17.8 g/dL (13.6-17.8); IMMATURE GRANULOCYTES 1.8 %; LYMPHOCYTES 7.3 %; MANUAL DIFF NO %; MEAN CORPUS HGB CONC 33.8 g/dL (32.0-36.0); MEAN CORPUSCULAR HEMOGLOB 30.5 pg (26.0-34.0); MEAN CORPUSCULAR VOLUME 90.2 fL (80-100); MEAN PLATELET VOLUME 11.4 fL (9.2-13.0); MONOCYTES 2.6 %; MONOCYTES ABSOLUTE 0.14 10/3/uL (0.21-1.20); NEUTROPHILS 87.7 %; PLATELET COUNT 104 10/3/uL (150-400); RBC DISTRIBUTION WIDTH 13.5 % (12.0-16.0); RED CELL COUNT 5.84 10/6/uL (4.7-6.1); WHITE BLOOD CELLS 5.5 10/3/uL (4.5-10.5)
[2016-09-16 05:58] LABS: ALKALINE PHOSPHATASE 82 U/L (45-117); BUN (BLOOD UREA NITROGEN) 49 MG/DL (6-23); CALCIUM, SERUM 9.3 MG/DL (8.5-10.4); CHLORIDE, SERUM 102 MMOL/L (96-112); CO2 (CARBON DIOXIDE) 37 MMOL/L (24-34); CREATININE 0.83 MG/DL (0.70-1.30); GFR AFRICAN AMERICAN 98 ML/MIN (>=60); GFR NON AFRICAN AMERICAN 84 ML/MIN (>=60); GLOBULIN 2.9 G/DL (2.5-4.1); GLUCOSE, SERUM 95 MG/DL (60-99); POTASSIUM, SERUM 4.4 MMOL/L (3.5-5.3); SGOT(AST) 67 U/L (5-40); SGPT(ALT) 316 U/L (5-65); SODIUM, SERUM 141 MMOL/L (135-148); TOTAL BILIRUBIN 0.9 MG/DL (0-1.2); TOTAL PROTEIN 5.9 G/DL (6.0-8.5)
[2016-09-17 05:37] LABS: BASOPHILS 0.2 %; BASOPHILS ABSOLUTE 0.01 10/3/uL (0.0-0.16); EOSINOPHILS 0.2 %; EOSINOPHILS ABSOLUTE 0.01 10/3/uL (0.0-0.53); HEMATOCRIT 48.4 % (40.0-51.0); IMMATURE GRANULOCYTES ABSOLUTE 0.05 10/3/uL (0.0-0.11); LYMPHOCYTES 7.8 %; MANUAL DIFF NO %; MEAN CORPUS HGB CONC 33.1 g/dL (32.0-36.0); MEAN CORPUSCULAR VOLUME 90.8 fL (80-100); MEAN PLATELET VOLUME 12.1 fL (9.2-13.0); MONOCYTES 4.5 %; MONOCYTES ABSOLUTE 0.23 10/3/uL (0.21-1.20); NEUTROPHILS 86.3 %; PLATELET COUNT 103 10/3/uL (150-400); RBC DISTRIBUTION WIDTH 13.6 % (12.0-16.0); RED CELL COUNT 5.33 10/6/uL (4.7-6.1); WHITE BLOOD CELLS 5.1 10/3/uL (4.5-10.5)
[2016-09-17 05:57] LABS: ALBUMIN 2.8 G/DL (3.5-5.0); ALKALINE PHOSPHATASE 71 U/L (45-117); CALCIUM, SERUM 8.9 MG/DL (8.5-10.4); CHLORIDE, SERUM 100 MMOL/L (96-112); CREATININE 0.91 MG/DL (0.70-1.30); GFR AFRICAN AMERICAN 93 ML/MIN (>=60); GFR NON AFRICAN AMERICAN 80 ML/MIN (>=60); GLOBULIN 2.7 G/DL (2.5-4.1); GLUCOSE, SERUM 100 MG/DL (60-99); POTASSIUM, SERUM 4.9 MMOL/L (3.5-5.3); SGOT(AST) 43 U/L (5-40); SGPT(ALT) 230 U/L (5-65); SODIUM, SERUM 143 MMOL/L (135-148); TOTAL BILIRUBIN 0.9 MG/DL (0-1.2); TOTAL PROTEIN 5.5 G/DL (6.0-8.5)
[2016-09-17 05:58] LABS: BUN (BLOOD UREA NITROGEN) 44 MG/DL (6-23); CO2 (CARBON DIOXIDE) 43 MMOL/L (24-34)
[2016-11-27] MEDS ORDERED: CELEBREX2 PO (14:18)
[2016-11-27] MEDS ORDERED: LOP25 PO (14:19)
[2016-11-27] MEDS ORDERED: P20 PO (14:20)
[2016-11-27] MEDS ORDERED: REQUIP1 PO (14:21)
[2016-11-27] MEDS ORDERED: BROVANA15 MCG INH (14:23)
[2016-11-27] MEDS ORDERED: PULRESP.5 INH (14:23)
[2016-11-27] MEDS ORDERED: VALIUM10 MG PO (14:23)
[2016-11-27] MEDS ORDERED: DSS PO (14:24)
[2016-11-27] MEDS ORDERED: DUONEB INH (14:24)
[2016-11-27] MEDS ORDERED: BIST PO (14:25)
[2016-11-27] MEDS ORDERED: THERGRANM PO (14:25)
== END 2016-09-21 17:39 | DRG 823 ==
LOC: DMU 15:39 → 5NO 21:02 → IMCU 09-07 15:03 → 6NO 09-15 18:19
PROVIDERS: Anesthesiology; Internal Medicine; Internal Medicine Hematology & Oncology; Internal Medicine Pulmonary Disease; Nurse Practitioner Acute Care; Thoracic Surgery (Cardiothoracic Vascular Surgery)
PROC: 0BB78ZX Excision of Left Main Bronchus, Via Natural or Artificial Opening Endoscopic, Diagnostic (ICD-10-PCS; principal; 2016-09-05 16:30)
PROC: 07B73ZX Excision of Thorax Lymphatic, Percutaneous Approach, Diagnostic (ICD-10-PCS; 2016-09-05 16:30)
PROC: 5A09357 Assistance with Respiratory Ventilation, Less than 24 Consecutive Hours, Continuous Positive Airway Pressure (ICD-10-PCS; 2016-09-07)
PROC: 02HV33Z Insertion of Infusion Device into Superior Vena Cava, Percutaneous Approach (ICD-10-PCS; 2016-09-08)
PROC: 4A02X4A Measurement of Cardiac Electrical Activity, Guidance, External Approach (ICD-10-PCS; 2016-09-08)
DX: C83.39 Diffuse large B-cell lymphoma, extranodal and solid organ sites (principal); J95.822 Acute and chronic postprocedural respiratory failure; D45 Polycythemia vera; J44.1 Chronic obstructive pulmonary disease with (acute) exacerbation; J98.11 Atelectasis; G89.4 Chronic pain syndrome; I73.9 Peripheral vascular disease, unspecified; I48.0 Paroxysmal atrial fibrillation; K59.00 Constipation, unspecified; D69.6 Thrombocytopenia, unspecified; T38.7X5A Adverse effect of androgens and anabolic congeners, initial encounter; F41.9 Anxiety disorder, unspecified; Y83.8 Other surgical procedures as the cause of abnormal reaction of the patient, or of later complication, without mention of misadventure at the time of the procedure; Z88.2 Allergy status to sulfonamides; Z88.5 Allergy status to narcotic agent; Z87.891 Personal history of nicotine dependence
CPT/HCPCS: 36569; 36600; 71010; 71020; 80048; 80053; 80076; 82805; 83615; 83735; 84100; 84550; 85014; 85018; 85025; 86022; 87641; 88172; 88173; 88177; 88305; 88333; 88341; 88342; 88360; 93005; 93306; 94640; 94660; 94668; 94762; 97110-GP; 97116-GP; 97162-GP; 97530-GP; A9270-GY; C1725; C1751; G8978-CK-GP; G8979-CJ-GP; J0456; J1940; J2405; J2920; J2930; J9070; J9310; J9370